=== PATIENT | female | born 1995 | race Caucasian/White ===

== ENCOUNTER → 2024-06-19 | Outpatient (CLI) | payer OTHER | LOC: M RAD 14:44 | PROVIDERS: ATTEND Emergency Medicine | DX: O00.90 Unspecified ectopic pregnancy without intrauterine pregnancy (principal) ==

== ENCOUNTER 2024-07-05 15:06 | Emergency (ER) | payer OTHER ==
[~2024-07-05] VITALS: Ht 165.1 cm; Wt 115.0 kg
[2024-07-05 19:03] VITALS: O2SAT 98
[2024-07-05 21:00] LABS: BASO # 0.1 10^3/uL (0.0-0.2); BASO % 0.6 % (0.0-1.0); EOS # 0.1 10^3/uL (0.0-0.5); EOS % 1.1 % (0.0-3.0); HEMATOCRIT 36.5 % (36.0-47.0); HEMOGLOBIN 12.2 g/dl (12.0-15.5); LYMPH # 2.5 10^3/uL (1.5-5.0); LYMPH % 29.7 % (24.0-44.0); MEAN CORPUSCULAR HEMOGLOBIN 28.2 pg (27.0-33.0); MEAN CORPUSCULAR HGB CONC 33.4 g/dl (32.0-36.5); MEAN CORPUSCULAR VOLUME 84.3 fl (80.0-96.0); MONO # 0.6 10^3/uL (0.0-0.8); MONO % 7.1 % (2.0-8.0); PLATELET COUNT, AUTOMATED 183 10^3/uL (150-450); RED BLOOD COUNT 4.33 10^6/uL (4.00-5.40); WHITE BLOOD COUNT 8.3 10^3/uL (4.0-10.0)
[2024-07-05 22:09] VITALS: BP 124/78; TEMP 97.4
== END 2024-07-05 22:10 | disposition home or self-care (01) ==
LOC: M ED 15:06
DX: O20.8 Other hemorrhage in early pregnancy (principal); Z3A.09 9 weeks gestation of pregnancy; O99.511 Diseases of the respiratory system complicating pregnancy, first trimester; J45.909 Unspecified asthma, uncomplicated

== ENCOUNTER → 2024-07-07 | Outpatient (CLI) | payer OTHER | LOC: M RAD 13:09 | PROVIDERS: ATTEND Nurse Practitioner Family | DX: O09.11 Supervision of pregnancy with history of ectopic pregnancy, first trimester (principal); Z3A.01 Less than 8 weeks gestation of pregnancy ==

== ENCOUNTER → 2024-07-18 | Outpatient (REF) | payer OTHER | LOC: M PLALAB 14:56 | PROVIDERS: ATTEND Advanced Practice Midwife | DX: Z34.81 Encounter for supervision of other normal pregnancy, first trimester (principal) ==

== ENCOUNTER → 2024-08-08 | Outpatient (CLI) | payer OTHER ==
[2024-08-08 18:52] LABS: HEMATOCRIT 36.4 % (36.0-47.0); HEMOGLOBIN 12.2 g/dl (12.0-15.5); MEAN CORPUSCULAR HEMOGLOBIN 28.4 pg (27.0-33.0); MEAN CORPUSCULAR HGB CONC 33.5 g/dl (32.0-36.5); MEAN CORPUSCULAR VOLUME 84.8 fl (80.0-96.0); PLATELET COUNT, AUTOMATED 174 10^3/uL (150-450); RED BLOOD COUNT 4.29 10^6/uL (4.00-5.40); WHITE BLOOD COUNT 5.5 10^3/uL (4.0-10.0)
[2024-08-08 19:27] LABS: Trichomonas vaginalis (AMP) NOT DETECTED (NEGATIVE)
[2024-08-08 19:47] LABS: HIV 1&2 SCREEN NEGATIVE (NEGATIVE)
[2024-08-08 19:51] LABS: GC DNA AMPLIFICATION NEGATIVE (NEGATIVE)
[2024-08-08 19:55] LABS: HEPATITIS C VIRUS ABY INDEX 0.02 INDEX (<0.8)
== END ==
LOC: M PLALAB 14:11
PROVIDERS: ATTEND Advanced Practice Midwife
DX: Z34.81 Encounter for supervision of other normal pregnancy, first trimester (principal)

== ENCOUNTER → 2024-12-05 | Outpatient (CLI) | payer OTHER ==
[2024-12-05 13:49] LABS: PLATELET COUNT, AUTOMATED 159 10^3/uL (150-450)
[2024-12-05 14:09] LABS: GLUCOSE CHALLENGE TEST 1 HOUR 121 MG/DL (LESS THAN 140)
[2024-12-05 14:38] LABS: HIV 1&2 SCREEN NEGATIVE (NEGATIVE)
[2024-12-05 14:47] LABS: HEPATITIS C VIRUS ABY INDEX < 0.02 INDEX (<0.8)
[2024-12-05 15:00] LABS: Trichomonas vaginalis (AMP) NOT DETECTED (NEGATIVE)
[2024-12-05 15:23] LABS: GC DNA AMPLIFICATION NEGATIVE (NEGATIVE)
== END ==
LOC: M PLALAB 08:40
PROVIDERS: ATTEND Advanced Practice Midwife
DX: Z34.82 Encounter for supervision of other normal pregnancy, second trimester (principal)

== ENCOUNTER → 2024-12-26 | Outpatient (CLI) | payer OTHER ==
[~2024-12-26] MED LIST: ALBU2.5V10 NEB; FERR325T19 PO; IRON27TA2 PO; PRENTAB9 PO; TUMS500C PO
== END ==
LOC: M WHC 11:59
PROVIDERS: ATTEND Advanced Practice Midwife
DX: Z34.83 Encounter for supervision of other normal pregnancy, third trimester (principal); Z3A.31 31 weeks gestation of pregnancy

== ENCOUNTER → 2025-01-31 | Outpatient (CLI) | payer OTHER ==
[~2025-01-31] VITALS: Ht 165.1 cm; Wt 118.5 kg
[~2025-01-31] MED LIST changes: +HOME MED LIST COMPLETE! XX SCH
[2025-01-31 13:45] VITALS: BP 115/67
== END ==
LOC: M LDO 13:21
PROVIDERS: ATTEND Advanced Practice Midwife
DX: O26.893 Other specified pregnancy related conditions, third trimester (principal); O34.219 Maternal care for unspecified type scar from previous cesarean delivery; O99.333 Smoking (tobacco) complicating pregnancy, third trimester; N89.8 Other specified noninflammatory disorders of vagina; F17.290 Nicotine dependence, other tobacco product, uncomplicated; Z3A.36 36 weeks gestation of pregnancy
CPT/HCPCS: 59025; G0463

== ENCOUNTER 2025-02-01 10:30 | Inpatient (IN) | payer OTHER ==
[~2025-02-01] VITALS: Ht 165.1 cm; Wt 120.9 kg
[~2025-02-01 10:30] MED LIST changes: -HOME MED LIST COMPLETE! XX SCH; -TUMS500C PO
[2025-02-05] MEDS ORDERED: TUMS500C PO (16:59)
[2025-02-22] VITALS (9 sets, daily range): BP systolic 108–124; BP diastolic 51–61; TEMP 98.4; O2SAT 96–98
[2025-02-22] MEDS ORDERED: HOME MED LIST COMPLETE! XX SCH (05:45)
[2025-02-22 06:16] LABS: PLATELET COUNT, AUTOMATED 135 10^3/uL (150-450)
[2025-02-22] MEDS: LACTATED RINGER'S 1000 ML IV STA (06:53)
[2025-02-22] MEDS ORDERED: **NOTE PATIENT COMMENT** MISC XX SCH (07:00)
[2025-02-22] MEDS: SLF 3 ML SYR IV SCH (07:00)
[2025-02-22] MEDS ORDERED: MEPERIDINE 25 MG/ML 1 ML VIAL IV PRN (07:00)
[2025-02-22] MEDS ORDERED: NALOXONE INJ 0.4 MG/1 ML VIAL IV PRN ×2 (07:00)
[2025-02-22] MEDS ORDERED: HYDROMORPHONE HCL 0.5 MG/0.5 ML SYRINGE IV PRN (07:00)
[2025-02-22] MEDS ORDERED: diphenhydrAMINE 50 MG/ML VIAL IV PRN (07:00)
[2025-02-22] MEDS ORDERED: ONDANSETRON 4MG/2ML VIAL IV PRN (07:00)
[2025-02-22] MEDS ORDERED: KETOROLAC 30 MG/ML 1 ML VIAL As Ordered ONE (07:08)
[2025-02-22] MEDS ORDERED: OXYTOCIN INJ 10UNITS/ML 1ML VIAL As Ordered ONE (07:08)
[2025-02-22] MEDS ORDERED: dexAMETHasone 4 MG/ML 1 ML VIAL As Ordered ONE (07:08)
[2025-02-22] MEDS ORDERED: ONDANSETRON 4MG/2ML VIAL As Ordered ONE (07:08)
[2025-02-22] MEDS ORDERED: MORPHINE PRES-FREE INJ 10 MG/10 ML VIAL As Ordered ONE (07:09)
[2025-02-22] MEDS: LR 1,000 ML IV SCH ×2 (07:12→11:43)
[2025-02-22 07:14] LABS: HIV 1&2 SCREEN NEGATIVE (NEGATIVE)
[2025-02-22] MEDS: BICITRA 30 ML SOLN UDC PO ONE (07:21)
[2025-02-22] MEDS: ceFAZolin SODIUM 2 GM in DEXTROSE 5% (D5W) ADV/MINI-BAG 50 ML IV ONE (07:21)
[2025-02-22 07:22] LABS: HEPATITIS C VIRUS ABY INDEX < 0.02 INDEX (<0.8)
[2025-02-22] MEDS ORDERED: PHENYLephrine 500MCG 5ML (100MCG/ML) SYRINGE As Ordered ONE (07:53)
[2025-02-22] MEDS ORDERED: ANUSOL HC CREAM 30 GM TOP PRN (08:50)
[2025-02-22] MEDS ORDERED: CALCIUM CARBONATE 500 MG CHEW U/D PO PRN (08:50)
[2025-02-22] MEDS ORDERED: RHOGAM 300MCG (1500IU) INJ IM SCH (08:50)
[2025-02-22] MEDS ORDERED: OXYTOCIN DRIP 30 UNITS in IV 1 EA IV SCH (08:50)
[2025-02-22] MEDS ORDERED: METHYLERGONOVINE MALEATE 0.2 MG/ML 1 ML VIAL IM PRN (08:50)
[2025-02-22] MEDS ORDERED: MORPHINE 4 MG/ML 1 ML VIAL IV PRN (08:50)
[2025-02-22] MEDS ORDERED: PERCOCET PO (08:53)
[2025-02-22] MEDS ORDERED: IBUP80TA PO (08:53)
[2025-02-22] MEDS ORDERED: COLA100C5 PO (08:53)
[2025-02-22] MEDS ORDERED: UNRESOLVED CLARIFICATION ENTRY XX SCH (09:00)
[2025-02-22] MEDS: PRENATAL VITAMINS CHEWABLE TABLET PO SCH (09:00)
[2025-02-22] MEDS: DOCUSATE SODIUM 100 MG CAPSULE PO SCH (09:00)
[2025-02-22] MEDS: FERROUS SULFATE 325 MG TAB PO SCH (09:00)
[2025-02-22 11:15] LABS: PLATELET COUNT, AUTOMATED 123 10^3/uL (150-450)
[2025-02-22 11:34] LABS: CREATININE FOR GFR 0.60 MG/DL (0.55-1.30); GLOMERULAR FILTRATION RATE > 90.0 (>60)
[2025-02-22] MEDS ORDERED: ENOXAPARIN 40 MG/0.4 ML SYRINGE (J1650 PER 10MG) SC SCH (15:00)
[2025-02-22] MEDS: KETOROLAC 30 MG/ML 1 ML VIAL IV SCH (15:10)
[2025-02-22] MEDS: ENOXAPARIN 40 MG/0.4 ML SYRINGE (J1650 PER 10MG) SC SCH (17:35)
[2025-02-22] MEDS: SIMETHICONE 80MG CHEW TAB PO PRN (21:24)
[2025-02-23] MEDS: ACETAMINOPHEN 500 MG TAB PO PRN (02:34)
[2025-02-23 06:00] VITALS: BP 107/54; O2SAT 98
[2025-02-23 07:10] LABS: PLATELET COUNT, AUTOMATED 120 10^3/uL (150-450)
[2025-02-23 10:00] VITALS: BP 104/57; O2SAT 97
[2025-02-23] MEDS: IBUPROFEN 800 MG TAB PO SCH (10:38)
[2025-02-23 14:06] VITALS: BP 121/61; O2SAT 95
[2025-02-23] MEDS: PERCOCET 5MG/325MG TAB PO PRN ×2 (14:42→19:22)
[2025-02-23 18:00] VITALS: BP 130/65; O2SAT 97
[2025-02-23] MEDS: LR 1,000 ML IV SCH (19:07)
[2025-02-23 22:00] VITALS: BP 102/58; O2SAT 97
[2025-02-24 02:00] VITALS: BP 113/81; O2SAT 100
[2025-02-24 06:00] VITALS: BP 115/68; O2SAT 98
[2025-02-24] MEDS ORDERED: MEASLES,MUMPS,RUBELLA VACCINE INJ (MMR-II) SC.IMMUN ONE (09:00)
[2025-02-24] MEDS: FLUZONE VACCINE TRI PF(25-26) 0.5ML SYRINGE IM.IMMUN ONE (13:21)
== END 2025-02-24 14:15 | disposition home or self-care (01) | DRG 540 ==
LOC: M LDI 02-22 05:26 → EDSTATUS 02-22 07:30 → M OBS 02-22 10:15
PROVIDERS: ADMIT Obstetrics & Gynecology; ATTEND Obstetrics & Gynecology
PROC: 10D00Z1 Extraction of Products of Conception, Low, Open Approach (ICD-10-PCS; principal; 2025-02-22 07:30)
DX: O34.211 Maternal care for low transverse scar from previous cesarean delivery (principal); Z37.0 Single live birth; Z3A.39 39 weeks gestation of pregnancy

== ENCOUNTER → 2025-02-02 | Outpatient (REF) | payer OTHER ==
[~2025-02-02] MED LIST changes: +TUMS500C PO
== END ==
LOC: M PLALAB 09:07
PROVIDERS: ATTEND Student in an Organized Health Care Education/Training Program
DX: Z36.85 Encounter for antenatal screening for Streptococcus B (principal); Z3A.36 36 weeks gestation of pregnancy

== ENCOUNTER 2025-02-05 16:36 | Outpatient (CLI) | payer OTHER ==
[~2025-02-05] VITALS: Ht 165.1 cm; Wt 118.0 kg
[~2025-02-05 16:36] MED LIST changes: -TUMS500C PO
[2025-02-05] MEDS ORDERED: TUMS500C PO (16:59)
[2025-02-05] MEDS ORDERED: HOME MED LIST COMPLETE! XX SCH (17:00)
[2025-02-05 17:03] VITALS: BP 107/56; O2SAT 98
[2025-02-05 18:58] VITALS: BP 112/52; O2SAT 97
== END 2025-02-05 20:42 | disposition home or self-care (01) ==
LOC: M LDO 16:36
PROVIDERS: ATTEND Advanced Practice Midwife
DX: O26.893 Other specified pregnancy related conditions, third trimester (principal); O32.1XX0 Maternal care for breech presentation, not applicable or unspecified; O99.213 Obesity complicating pregnancy, third trimester; O34.211 Maternal care for low transverse scar from previous cesarean delivery; E66.9 Obesity, unspecified; Z3A.36 36 weeks gestation of pregnancy
CPT/HCPCS: 59025; 76815; 76819; 76820; G0463

== ENCOUNTER → 2025-02-07 | Outpatient (CLI) | payer OTHER ==
[~2025-02-07] MED LIST changes: +TUMS500C PO
== END ==
LOC: M RAD 07:30
PROVIDERS: ATTEND Student in an Organized Health Care Education/Training Program
DX: Z36.2 Encounter for other antenatal screening follow-up (principal); Z87.59 Personal history of other complications of pregnancy, childbirth and the puerperium; Z3A.37 37 weeks gestation of pregnancy

== ENCOUNTER → 2025-02-07 | Outpatient (CLI) | payer OTHER | LOC: M WHC 02-06 13:14 | PROVIDERS: ATTEND Student in an Organized Health Care Education/Training Program | DX: Z53.9 Procedure and treatment not carried out, unspecified reason (principal) ==